=== PATIENT | female | born 1945 | race Caucasian/White ===

== ENCOUNTER 2020-06-20 10:20 | Outpatient (CLI) | payer MEDICARE ==
[2020-06-20] MEDS ORDERED: GADOTERATE 7.5 MMOL/15 ML VIAL ONE (11:50)
[2020-06-27] MEDS ORDERED: BUSP30TA PO (15:22)
[2020-06-27] MEDS ORDERED: IMODIUM PO (15:22)
[2020-06-27] MEDS ORDERED: ESZO1TAB8 PO (15:22)
[2020-06-27] MEDS ORDERED: BUPR150T73 PO (15:22)
[2020-06-27] MEDS ORDERED: HYDROCHLOROTH12.5 MG PO (15:22)
[2020-06-27] MEDS ORDERED: AMLO-211 PO (15:22)
[2020-06-27] MEDS ORDERED: ALPR0.254 PO (15:22)
[2020-06-27] MEDS ORDERED: QUIN40TA15 PO (15:22)
[2020-06-27] MEDS ORDERED: LATA2.5D4 EACHEYE (15:22)
== END 2020-06-20 23:59 | disposition home or self-care (01) ==
LOC: CFH 10:20
PROVIDERS: ATTEND Surgery
DX: C50.811 Malignant neoplasm of overlapping sites of right female breast (principal)
CPT/HCPCS: 77049; A9575; C8937; C8908

== ENCOUNTER 2020-06-29 13:43 | Day surgery (SDC) | payer MEDICARE ==
[2020-06-27 16:18] LABS: CHLORIDE 103 mmol/L (98-107)
[2020-06-27 16:40] LABS: ALANINE AMINOTRANSFERASE 26 U/L (12-78); ALBUMIN 4.2 g/dL (3.4-5.0); ALKALINE PHOSPHATASE 75 U/L (45-117); ANION GAP 7 mmol/L (5-15); BILIRUBIN,TOTAL 0.4 mg/dL (0.2-1.0); CALCIUM 9.7 mg/dL (8.5-10.1); CREATININE 0.81 mg/dL (0.55-1.02); TOTAL PROTEIN 7.8 g/dL (6.4-8.2)
[~2020-06-29] VITALS: Ht 167.6 cm; Wt 59.4 kg
[~2020-06-29 13:43] MED LIST: ALPR0.254 PO; AMLO-211 PO; BUPIVACAINE/PF 0.5% ONE; BUPR150T73 PO; BUSP30TA PO; EPINEPHRINE 1 MG/ML, 1ML ONE; ESZO1TAB8 PO; HYDROCHLOROTH12.5 MG PO; IMODIUM PO; ISOSULFAN BLUE 10 MG/ML, 5ML IV ONE; LATA2.5D4 EACHEYE; QUIN40TA15 PO
[2020-06-29 14:34] VITALS: BP 157/100
[2020-06-29] MEDS ORDERED: CHLORHEXIDINE 15 ML UDC ONE (14:40)
[2020-06-29] MEDS ORDERED: CHLORHEXIDINE 15 ML UDC PO ONE (15:00)
[2020-06-29] MEDS ORDERED: LACTATED RINGERS 1,000 ML IV SCH (15:00)
[2020-06-29] MEDS ORDERED: FENTANYL PF 250 MCG/5ML ONE (15:11)
[2020-06-29] MEDS ORDERED: ONDANSETRON 2MG/ML, 2ML ONE (15:27)
[2020-06-29] MEDS ORDERED: SUCCINYLCHOLINE 20 MG/ML, 10ML ONE (15:27)
[2020-06-29] MEDS ORDERED: NEOSTIGMINE 1 MG/ML, 10ML ONE (15:27)
[2020-06-29] MEDS ORDERED: DEXAMETHASONE 4 MG/ML, 1ML ONE (15:27)
[2020-06-29] MEDS ORDERED: CEFAZOLIN 1,000 MG ONE (15:27)
[2020-06-29] MEDS ORDERED: GLYCOPYRROLATE 0.2MG/1ML, 5ML ONE (15:27)
[2020-06-29] MEDS ORDERED: KETOROLAC 30 MG/1 ML ONE (15:27)
[2020-06-29] MEDS ORDERED: ROCURONIUM 10 MG/ML,10ML ONE (15:27)
[2020-06-29] MEDS ORDERED: PROPOFOL 50 ML ONE ×2 (15:37→16:07)
[2020-06-29] MEDS ORDERED: METHOCARBAMOL 1,000 MG in DEXTROSE 5% 100 ML IV PRN (16:00)
[2020-06-29] MEDS ORDERED: FENTANYL PF 100 MCG/2ML IV PRN (16:00)
[2020-06-29] MEDS ORDERED: PROMETHAZINE 25 MG/ML, 1ML IVPush PRN (16:00)
[2020-06-29] MEDS ORDERED: ONDANSETRON 2MG/ML, 2ML IVPush PRN (16:00)
[2020-06-29] MEDS ORDERED: OXYcodone 5 MG/5 ML ORAL.SOL UDC PO PRN (16:00)
[2020-06-29] MEDS ORDERED: hydrALAzine 20 MG/ML, 1ML IV PRN (16:00)
[2020-06-29] MEDS ORDERED: ACETAMINOPHEN 325 MG TABLET PO PRN (16:00)
[2020-06-29] MEDS ORDERED: LORazepam 2 MG/ML, 1ML IVPush PRN (16:00)
[2020-06-29] MEDS ORDERED: HYDROmorphone 1 MG/ML, 1ML INJ IVPush PRN (16:00)
[2020-06-29] MEDS ORDERED: LABETALOL 5MG/ML, 20ML IV PRN (16:00)
[2020-06-29] MEDS ORDERED: ONDA4TAB7 PO (16:45)
[2020-06-29] MEDS ORDERED: HYDR-2214 PO (16:45)
== END 2020-06-29 18:25 | disposition home or self-care (01) ==
LOC: SDC 13:43 → EDSTATUS 15:30 → SDC 18:25
PROVIDERS: ATTEND Surgery
DX: C50.511 Malignant neoplasm of lower-outer quadrant of right female breast (principal); I10 Essential (primary) hypertension; F41.9 Anxiety disorder, unspecified; H40.9 Unspecified glaucoma; Z17.0 Estrogen receptor positive status [ER+]; Z20.822 Contact with and (suspected) exposure to COVID-19; Z79.899 Other long term (current) drug therapy; Z90.12 Acquired absence of left breast and nipple; Z92.21 Personal history of antineoplastic chemotherapy; Z80.3 Family history of malignant neoplasm of breast
CPT/HCPCS: 19301; 36415; 38525; 38792; 76098; 80053; 88307; 88329; 93005; A9541; J0171; J0330; J0690; J1100; J1885; J2405; J2704; J2710; J3010; J7120; U0003